=== PATIENT | male | born 1990 | race American Indian/Alaskan Native ===

== ENCOUNTER 2021-03-22 09:05 | Emergency (ER) | payer OTHER ==
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
[2021-03-22] MEDS ORDERED: PANTOPRAZOLE 40 MG INJ IV ONE (10:59)
[2021-03-22] MEDS ORDERED: KETOROLAC 30 MG/1 ML INJ IV ONE (10:59)
[2021-03-22] MEDS ORDERED: ONDANSETRON 4 MG/2 ML INJ IV ONE (10:59)
[2021-03-22] MEDS ORDERED: SODIUM CHLORIDE 0.9% 1000 ML 1,000 ML IV ONE (10:59)
[2021-03-22 11:46] LABS: Basophils # (Auto) 0.1 K/mm3 (0.0-0.1); Eosinophils % (Auto) 0.1 % (0.0-4.3); Hematocrit 42.9 % (35.5-45.6); Hemoglobin 14.5 gm/dl (11.8-15.2); Lymphocytes % (Auto) 13.8 % (13.4-35.0); Mean Corpuscular HGB Conc 34 % (32-34); Mean Corpuscular Volume 87 fl (84-94); Monocytes # (Auto) 0.7 K/mm3 (0.0-0.8); Platelet Count 348 K/mm3 (140-440); Red Blood Count 4.95 M/mm3 (3.65-5.03); Red Cell Distribution Width 13.5 % (13.2-15.2)
[2021-03-22 11:49] LABS: BUN/Creatinine Ratio 19; Blood Urea Nitrogen 15 mg/dL (9-20); Calcium 10.9 mg/dL (8.4-10.2); Hemolysis Index 7
[2021-03-22 11:53] LABS: Alanine Aminotransferase 15 units/L (7-56)
[2021-03-22] MEDS ORDERED: PANTOPRAZOLE 40 MG INJ IV SCH (12:00)
[2021-03-22] MEDS ORDERED: ONDANSETRON 4 MG/2 ML INJ IV SCH (12:00)
[2021-03-22] MEDS ORDERED: KETOROLAC 30 MG/1 ML INJ IV SCH (12:00)
[2021-03-22 12:11] LABS: Bilirubin,Direct < 0.2 mg/dL (0-0.2)
[2021-03-22 13:44] VITALS: BP 156/89
[2021-03-22] MEDS ORDERED: oxyCODONE /ACETAMINOPHEN 5-325MG TAB PO ONE (15:11)
== END 2021-03-22 15:23 | disposition home or self-care (01) ==
LOC: ED 09:05
DX: K58.9 Irritable bowel syndrome, unspecified (principal); R11.10 Vomiting, unspecified; F12.90 Cannabis use, unspecified, uncomplicated; Z98.890 Other specified postprocedural states
CPT/HCPCS: 36415; 80048; 80076; 83690; 85025; 96361; 96374; 96375; 99283; C9113; J1885; J2405; J7030; 96365